=== PATIENT | female | born 1995 | race Caucasian/White ===

== ENCOUNTER 2019-08-09 08:37 | Emergency (ER) | payer SELFPAY ==
[~2019-08-09] VITALS: Ht 162.6 cm; Wt 81.7 kg
[~2019-08-09 08:37] MED LIST: ALBUTEROL SULF8.5 GM INH; AMOXICILLIN250 MG PO; HARD NAILS2500 MCG; IBUPROFEN600 MG PO; LEVOTHYROXINE25 MCG PO; LEVOTHYROXINE75 MCG PO; METFORMIN HCL500 MG PO; NAPROXEN500 MG PO; ORTHO TRI-CYCL1 EACH; PROZAC20 MG PO
[2019-08-09] MEDS ORDERED: VENTOLIN HFA18 GM INH (09:36)
== END 2019-08-09 09:49 | disposition home or self-care (01) ==
LOC: ED 08:37
DX: J06.9 Acute upper respiratory infection, unspecified (principal); E03.9 Hypothyroidism, unspecified; F17.200 Nicotine dependence, unspecified, uncomplicated; Z79.899 Other long term (current) drug therapy
CPT/HCPCS: 99283

== ENCOUNTER 2021-09-28 15:52 | Emergency (ER) | payer OTHER ==
[~2021-09-28] VITALS: Ht 162.6 cm; Wt 74.4 kg
[~2021-09-28 15:52] MED LIST changes: +VENTOLIN HFA18 GM INH
[2021-09-28] MEDS ORDERED: IBU600 MG PO (20:34)
[2021-09-28] MEDS ORDERED: STOOL SOFTENER240 MG PO (20:34)
[2021-09-28] MEDS ORDERED: ONDANSETRON ODT4 MG PO (20:34)
[2021-09-28] MEDS ORDERED: MIRALAX119 GM PO (20:34)
== END 2021-09-28 21:24 | disposition home or self-care (01) ==
LOC: ED 15:52
DX: K59.00 Constipation, unspecified (principal); R11.2 Nausea with vomiting, unspecified; E03.9 Hypothyroidism, unspecified; R73.03 Prediabetes; F17.200 Nicotine dependence, unspecified, uncomplicated; Z79.899 Other long term (current) drug therapy
CPT/HCPCS: 36415; 74018; 80053; 81001; 83690; 84703; 85025; 87210; 87491; 96374; 96375; 96376; 99284-25; J0500; J1885; J2405

== ENCOUNTER 2024-06-02 09:02 | Emergency (ER) | payer SELFPAY ==
[~2024-06-02] VITALS: Ht 162.6 cm; Wt 82.6 kg
[~2024-06-02 09:02] MED LIST changes: +IBU600 MG PO; +MIRALAX119 GM PO; +ONDANSETRON ODT4 MG PO; +STOOL SOFTENER240 MG PO
[2024-06-02] MEDS ORDERED: AMOXICILLIN500 M1 PO (10:49)
[2024-06-02 10:56] VITALS: BP 128/75
== END 2024-06-02 10:57 | disposition home or self-care (01) ==
LOC: ED 09:02
DX: K08.89 Other specified disorders of teeth and supporting structures (principal); E03.9 Hypothyroidism, unspecified; R73.03 Prediabetes; F17.200 Nicotine dependence, unspecified, uncomplicated
CPT/HCPCS: 99282